=== PATIENT | female | born 1985 | race Caucasian/White ===

== ENCOUNTER → 2020-03-10 | Outpatient (CLI) | payer OTHER ==
[~2020-03-10] MED LIST: DIBU10OI TOP; DOCU100C16 PO; IBUP80TA PO; PRENTAB9 PO
--- NOTE | 2020-03-16 07:52 | REP ---
NONVASCULAR EXTREMITY ULTRASOUND CLINICAL: Left axillary lump. TECHNIQUE: Real time, ayala scale and color evaluation using linear high frequency transducer. FINDINGS: Ultrasound examination of the left axillary region demonstrates 3 normal- appearing lymph nodes measuring 24 x 10 x 17 mm, 33 x 8 x 14 mm and 18 x 8 x 9 mm, which may be slightly enlarged. Evaluation of the right axillary region demonstrates a single normal lymph node measuring 12 x 5 x 6 mm. IMPRESSION: Palpable mass corresponds to left axillary lymph nodes which may be mildly prominent in size. MTDD
== END ==
LOC: M WHC 07:05
PROVIDERS: ATTEND Registered Nurse
DX: R59.0 Localized enlarged lymph nodes (principal)

== ENCOUNTER 2020-04-19 19:07 | Outpatient (CLI) | payer OTHER ==
[~2020-04-19] VITALS: Ht 172.7 cm; Wt 99.5 kg
[2020-04-19 19:28] VITALS: BP 135/79
[2020-04-19 19:32] VITALS: BP 128/75
[2020-04-19 19:36] VITALS: BP 131/75
[2020-04-19] MEDS ORDERED: PRENTAB9 PO (19:42)
[2020-04-19 20:24] VITALS: BP 147/82
--- NOTE | 2020-04-19 20:50 | IPNPDOC ---
Text Note Date of Service The patient was seen on 04/19/20. NOTE 04/19/2020 2030 HRS PATIENT SEEN IN TRIAGE FELT SROM AND PINK SHOW AFTER SHOWER. ALSO WITH BM MORE MUCOUS PINK DISCHARGE NO CTX . PATIENT G2 PO EDC 05/03/20 AT 38 WEEKS HISTORY UTI EVELYNE NEGATIVE . EXAMINATION NO DISTRESS NO CONTRACTIONS CATEGORY 1 STRIP MODERATE VARIABILITY NO DECELERATIONS ACCELERATIONS NOTED . STERILE SPECULUM EXAMINATION POSTERIOR CUL DE SAC MODERATE MUCUS WITH PINK SHOW. NITRAZINE NOT DIAGNOSTIC DUE TO SHOW SLIDE NO FERNING SOME RBC'S NO YEAST NO BV . ULTRASOUND VERTEX MODERATE FLUID 3 QUADRANTS 11.86 CM SMALLEST POCKET 2.47 LIMB MOTION OBSERVED SPONTANEOUS RESPIRATIONS NOTED . PRECAUTIONS GIVEN KEEP APPOINTMENT FT DRUM OB RTC PRN DISCHARGED UNDELIVERED. DIGITAL EXAMINATION VERTEX BALLOTABLE BULGING MEMBRANES SOFT 2 CM POSTERIOR . DISCHARGED UNDELIVERED VS,Fishbone, I+O VS, Fishbone, I+O Vital Signs Date Time Temp Pulse Resp B/P (MAP) Pulse Ox O2 Delivery O2 Flow Rate FiO2 04/19/20 20:29 98.7 18 04/19/20 20:24 108 147/82 (103) 04/19/20 19:36 98 Torin Sun MD Apr 19, 2020 20:49
== END 2020-04-19 20:39 | disposition home or self-care (01) ==
LOC: M LDO 19:07
PROVIDERS: ATTEND Obstetrics & Gynecology
DX: O26.853 Spotting complicating pregnancy, third trimester (principal); Z3A.38 38 weeks gestation of pregnancy
CPT/HCPCS: 59025; 76815; G0378; G0463

== ENCOUNTER 2020-04-20 00:34 | Outpatient (CLI) | payer OTHER ==
[~2020-04-20] VITALS: Ht 172.7 cm; Wt 98.4 kg
[2020-04-20] VITALS (9 sets, daily range): BP systolic 129–143; BP diastolic 64–92
[~2020-04-20 00:34] MED LIST changes: -DIBU10OI TOP; -DOCU100C16 PO; -IBUP80TA PO
--- NOTE | 2020-04-20 01:15 | IPNPDOC ---
Text Note Date of Service The patient was seen on 04/20/20. NOTE 04/20/2020 0110 am patient returns with history contractions started 1000 PM moderate no vaginal bleeding no discharge . patient distressed . PELVIC EXAMINATION CERVIX NO CHANGE 2 CM POSTERIOR SOFT -3 STATION PLAN REEVALUATE 1-2 HOURS KEEP HYDRATED EXPRESSED UNDERSTANDING . VS,Fishbone, I+O VS, Fishbone, I+O Vital Signs Date Time Temp Pulse Resp B/P (MAP) Pulse Ox O2 Delivery O2 Flow Rate FiO2 04/20/20 00:51 97.8 118 138/83 (101) Torin Sun MD Apr 20, 2020 01:15
[2020-04-20] MEDS ORDERED: BUTORPHANOL 2 MG/ML INJ (J0595) IV ONE (05:15)
[2020-04-20] MEDS ORDERED: LR 1,000 ML IV ONE (05:15)
[2020-04-20] MEDS ORDERED: PROMETHAZINE INJ 25 MG/ML VIAL (J2550) IV ONE (05:15)
--- NOTE | 2020-04-20 05:25 | IPNPDOC ---
Text Note Date of Service The patient was seen on 04/20/20. NOTE 0500 am 04/20/20 assessment 2 hours after admission, still 2 cm posterior catagory 1 strip ineffective contractions . PLAN OF CARE IV HYDRATE AND SLEEP MEDICATION . PATIENT WILL EITHER LABOR OR CONTRACTIONS WILL FALLL OFF PATIENT EXPRESSED UNDERSTANDING SAFE TO PROCEED. VS,Fishbone, I+O VS, Fishbone, I+O Vital Signs Date Time Temp Pulse Resp B/P (MAP) Pulse Ox O2 Delivery O2 Flow Rate FiO2 04/20/20 00:51 97.8 118 138/83 (101) Torin Sun MD Apr 20, 2020 05:19
[2020-04-20] MEDS ORDERED: LR 1,000 ML IV SCH (06:45)
== END 2020-04-20 11:15 | disposition home or self-care (01) ==
LOC: M LDO 00:34
PROVIDERS: ATTEND Obstetrics & Gynecology
DX: O47.9 False labor, unspecified (principal); Z88.0 Allergy status to penicillin; Z88.1 Allergy status to other antibiotic agents; Z88.2 Allergy status to sulfonamides; Z88.8 Allergy status to other drugs, medicaments and biological substances
CPT/HCPCS: 59025; 96361; 96374; 96375; G0378; G0463; J0595

== ENCOUNTER 2020-04-21 21:51 | Inpatient (IN) | payer OTHER ==
[~2020-04-21] VITALS: Ht 172.7 cm; Wt 100.2 kg
[2020-04-21 23:09] VITALS: BP 141/81
[2020-04-21 23:12] LABS: HEMATOCRIT 33.8 % (36.0-47.0); HEMOGLOBIN 10.3 g/dl (12.0-15.5); MEAN CORPUSCULAR HEMOGLOBIN 24.7 pg (27.0-33.0); MEAN CORPUSCULAR HGB CONC 30.5 g/dl (32.0-36.5); MEAN CORPUSCULAR VOLUME 81.1 fl (80.0-96.0); PLATELET COUNT, AUTOMATED 284 10^3/uL (150-450); RED BLOOD COUNT 4.17 10^6/uL (4.00-5.40); WHITE BLOOD COUNT 15.2 10^3/uL (4.0-10.0)
[2020-04-21] MEDS ORDERED: LACTATED RINGER'S 1000 ML IV ONE (23:15)
[2020-04-21 23:20] VITALS: BP 139/83
[2020-04-22] VITALS (39 sets, daily range): BP systolic 113–188; BP diastolic 53–99
[2020-04-22] MEDS: LR 1,000 ML IV SCH ×2 (00:11→05:20)
--- NOTE | 2020-04-22 00:28 | HPEPDOC ---
Obstetrical History & Physical General Date of Admission Apr 21, 2020 at 22:16 Primary Care Physician: Torin Sun MD History of Present Illness 04/21/2020 1100 35 YO G2 PO MULTIPLE ADMISSIONS RE CONTRACTIONS. NOW INCREASED INTENSITY OF CONTRACTIONS GBS NEGATIVE RISK FACTOR AMA . NO LOSS OF FLUID NO V AGINAL BLEEDING. Chief Complaint: Contractions, term Age: 35 : 2 Term: 0 Abortions: 1 Care Care: Good Care Dating Final EDC: May 03, 2020 Final EDC by: 1st trimester (US) LMP: Jul 28, 2019 Weeks + Days: 9 Estimated Date of Confinement: May 03, 2020 EGA at Admission: 39.3 Past Medical History Past Obstetrical History : Past Obstetrical History: Multigravida TOBACCO STEMMER History: No pertinent history Past Medical History Surgical History: Denies/None Family History Significant Family History: No pertinent family hx Social History Marital Status: Family situation: Spouse/partner home Psychosocial History: No pertinent psych hx * Smoker: non-smoker Alcohol: Denies Drugs: denies Abuse Violence Screening Have you been hit/kicked/slapp: No Have you been sexually assault: No Imunizations Tdap status: current Allergies Coded Allergies: Penicillins (Verified Allergy, Intermediate, HIVES, 04/19/20) Sulfa (Sulfonamide Antibiotics) (Verified Allergy, Intermediate, HIVES, 04/19/20) Tetracyclines (Verified Allergy, Intermediate, HIVES, 04/19/20) cyclosporine (Verified Allergy, Intermediate, HIVES, 04/19/20) Medications Scheduled No.137/Iron/Folic Acd ( Vitamin Tablet) 1 Each Tablet, 1 TAB PO DAILY Physical Examination Physical Examination GENERAL: Alert and oriented times three. BREAST: . ABDOMEN: Gravid and non-tender to touch. FETUS: Is vertex (VTX) by sterile vaginal examination (SVE), fetus is vertex (VTX) by Emile. HEART RATE: Regular rate and rhythm. LUNGS: Clear to auscultation NO WHEEZES NO RHONCHI EXTREMITIES: No edema. Other physical findings PELVIC EXAM 4 CM ANTERIOR SOFT 70% EFFACED -3 STATION SPONTANEOUS RUPTURE OF MEMBRANES CLEAR FLUID Vital Signs/I&O Vital Signs Date Time Temp Pulse Resp B/P (MAP) Pulse Ox O2 Delivery O2 Flow Rate FiO2 04/21/20 23:09 98.6 96 20 141/81 (101) Laboratory Data [facility] Laboratory Tests 2 04/21/20 22:27: Serology Scanned Report Hepatitis B Testing 04/21/20 22:41: Nucleated Red Blood Cells % (auto) 0.0 CBC/BMP Laboratory Tests 04/21/20 22:41 Urine Culture: No Growth Pertinent Laboratoy Data Blood Type: O+ RBC Antibody Screen: Negative HIV: Negative Hepatitis B: Negative Rapid Plasma Reagin: Nonreactive Rubella: Immune Varicella: Immune Chlamydia/Gonorrhea: Negative Group B Streptococcus: Negative Cystic Fibrosis: Negative Anatomy Ultrasound Placenta Location: Anterior Normal Anatomy: Yes Placenta Previa: No Steroid Therapy Steroid Therapy: No Vaginal Examination Dilation: 4 cm Effacement: 80% Station: -3 Cervical Consistency: Soft Cervical Position: Anterior Presentation: Cephalic presentation Assessment Variability: Moderate Accelerations: Positive Decelerations: None Tocometer Contractions: Yes Frequency: regular, every 1-5 min. Duration: less than 60 seconds Strength: palpated as mild Assessment/Plan Assessment 35 Y.O-year-old (G 2para (P0 A 1 at 39.4 by 9.0 -week ultrasound. Presents to Labor and Delivery . Plan Admit and orient. Manager Military and consent. Diet:REGULAR Group B Streptococcus (GBS) [negative]. Labs and intravenous (IV) per unit protocol. Counseled on Pitocin AUGMENTATION Lactated Ringers (LR): Bolus 1000 mL, then at 125 mL/hr. Anticipate [normal spontaneous delivery ()]. C-S as appropriate. Labor and Delivery Counseling 04/21/20 REVIEWED PLAN OF CARE AND CONSENT FOR DELIVERY PLAN IV HYDRATE EPIDURAL NEEDED . POSSIBLE AUGMENTATION OF LABOR . POSSIBLE NEED FOR PITOCIN , EPISIOTOMY. FORCEPS OR VACUUM OR EMERGENCY . RISKS FOR ABOVE ARE TACHYSYSTOLE,NRFHT UTERINE RUPTURE NEED FOR EMERGENCY CS ADMISSION TO NICU RE SCRATCHES , HEMATOMA OR INTRACRANIAL BLEED. NEED FOR RE PAIR CERVIX PERINEUM VAGINA BLADDER REMOTE BLOOD TRANSFUSION, REMOTE HYSTERECTOMY FOR LIFE THREATENING BLEEDING EXPRESSED UNDERSTANDING CATAGORY 1 STRIP SAFE TO PROCEED' Torin Sun MD Apr 22, 2020 00:16
[2020-04-22] MEDS ORDERED: FENTANYL 2MCG/ML ROPIVACAINE 0.2% IN 0.9% NACL 100ML IVBAG As Ordered ONE (00:40)
[2020-04-22] MEDS ORDERED: OXYTOCIN INJ 10 UNITS/ML VIAL (J2590) As Ordered ONE (00:40)
[2020-04-22] MEDS ORDERED: OXYTOCIN 30 UNITS IN 0.9% NaCl 500ML IV BAG (J2590) As Ordered ONE (00:40)
[2020-04-22] MEDS ORDERED: ONDANSETRON 4MG/2ML VIAL IV PRN (01:30)
[2020-04-22] MEDS ORDERED: LACTATED RINGER'S 1000 ML IV PRN (01:30)
[2020-04-22] MEDS ORDERED: EPIDURAL/PCA KEYS XX PRN (01:30)
[2020-04-22] MEDS ORDERED: NALOXONE INJ 0.4MG/1ML VIAL (J2310 PER 1MG) IV PRN (01:30)
[2020-04-22] MEDS ORDERED: REFRIGERATOR IV KEYS XX PRN (01:30)
[2020-04-22] MEDS ORDERED: diphenhydrAMINE 50MG/ML VIAL (J1200) IV PRN (01:30)
[2020-04-22] MEDS ORDERED: ePHEDrine SULFATE 25 MG/5 ML(5MG/ML) SYRINGE IV PRN (01:30)
[2020-04-22] MEDS ORDERED: EPIDURAL COMMENT XX SCH (01:30)
[2020-04-22] MEDS ORDERED: FENTANYL/ROPIVACAINE/NACL BAG 100 ML EPIDURAL SCH (01:30)
[2020-04-22] MEDS ORDERED: OXYTOCIN DRIP 30 UNITS in IV 1 EA IV SCH ×3 (04:30→10:00)
[2020-04-22] MEDS ORDERED: CALCIUM CARBONATE 500 MG CHEW U/D PO ONE (06:00)
[2020-04-22] MEDS ORDERED: DOCUSATE SODIUM 100 MG CAP PO PRN (09:15)
[2020-04-22] MEDS ORDERED: RHOGAM 300 MCG (1500 IU) INJ (J2790) IM SCH (09:15)
[2020-04-22] MEDS ORDERED: DIBUCAINE 1% OINTMENT 30GM TOP PRN (09:15)
--- NOTE | 2020-04-22 09:40 | DNPDOC ---
[facility] Delivery Note Delivery Note DATE OF DELIVERY: 22APR2020 PREDELIVERY DIAGNOSIS: 38-4/7 weeks' gestation and labor. POST DELIVERY DIAGNOSIS: Delivered. PROCEDURE: Spontaneous vaginal delivery DISPLAYER MERCHANDISE: Demetrius Merrill CNM ANESTHESIA: epidural. ESTIMATED BLOOD LOSS: 450 mL. FINDINGS: 8 pound 2 ounce male , Score 7/9, nuchal cord times x1 tight. DELIVERY SUMMARY: Patient is a 35-year-old 2 now para 1-0-1-1 who was admitted to labor and delivery for active labor at term on 21Apr2020. Alecia made gradual decent to in OA with restitution to MIRA. A tight nuchal cord and compound left hand were noted after delivery of the head. The posterior arm delivered spontaneously followed easily by the anterior shoulder. The was somersaulted towards the maternal right thigh and the cord manually reduced. The male infant was placed immediately skin to skin on the maternal abdomen where he was dried and stimulated to cry. Pitocin infusion was initiated. The cord was clamped x 2 after pulsation ceased and cut by the FOB. The placenta delivered spontaneously in [place] presentation with a moderate amount of bleeding. The cervix was swept for several clots and the fundus massaged until firm with bleeding appropriately slowed. Examination revealed and intact perineum and a shallow posterior vaginal wall laceration. The laceration was repaired in the usual fashion with 3-[address] Mother and baby entered the recovery phase in stable condition with skin to skin uninterrupted and initiated. DEMETRIUS MERRILL CNM Apr 22, 2020 09:40
[2020-04-22] MEDS ORDERED: PROMETHAZINE INJ 25 MG/ML VIAL (J2550) IV ONE (10:00)
[2020-04-22] MEDS ORDERED: BUTORPHANOL 2 MG/ML INJ (J0595) IV ONE (10:00)
[2020-04-22] MEDS ORDERED: CALCIUM CARBONATE 500 MG CHEW U/D PO PRN (10:00)
[2020-04-22] MEDS: ACETAMINOPHEN TAB 650MG DOSE (2X325MG) PO PRN ×2 (10:51→18:03)
[2020-04-22] MEDS: IBUPROFEN 800 MG TAB PO PRN ×2 (11:20→19:24)
[2020-04-23] MEDS: IBUPROFEN 800 MG TAB PO PRN (03:35)
[2020-04-23] MEDS: ACETAMINOPHEN TAB 650MG DOSE (2X325MG) PO PRN (03:35)
[2020-04-23 06:00] VITALS: BP 130/62
[2020-04-23] MEDS: PRENATAL VITAMINS CHEWABLE TABLET PO SCH (09:20)
[2020-04-23 18:00] VITALS: BP 133/78
[2020-04-24 06:00] VITALS: BP 125/66
[2020-04-24] MEDS ORDERED: DIBU10OI TOP (07:49)
[2020-04-24] MEDS ORDERED: IBUP80TA PO (07:49)
[2020-04-24] MEDS ORDERED: DOCU100C16 PO (07:49)
[2020-04-24] MEDS: PRENATAL VITAMINS CHEWABLE TABLET PO SCH (08:39)
[2020-04-24] MEDS ORDERED: INFLUENZA QUADRIVALENT PF VACCINE 0.5ML SYRINGE IM ONE (09:00)
--- NOTE | 2020-04-26 07:08 | DS ---
DATE OF ADMISSION: 04/21/2020 DATE OF DISCHARGE: 04/24/2020 BRIEF HISTORY: This lady is a 35-year-old 2, para 1 who came in in spontaneous labor, had a spontaneous vaginal delivery, male infant, 8 pounds, 2 ounces, coiled around the neck times one, loose. The patient had a small posterior vaginal wall laceration. She did have an epidural in place. The rest of the examination is unremarkable. Normocephalic, atraumatic. Neck: Full range of motions. Pupils equal and reactive to light. Distal pulses are symmetric. No evidence of DVT, PE, or superficial phlebitis. Chest is clear bilateral bases. No wheezes or rhonchi. No CVA tenderness. Abdomen is soft. Four quadrant bowel sounds are noted. Perineum is intact. Uterus is 2 below. No rashes, lesions or pruritus. No arthralgias or myalgias. No complaints of joint pain. No complaint of cough, wheeze, shortness of breath, or dyspnea on exertion. No nausea or vomiting, diarrhea, or constipation, no urgency or frequency. SUMMARY: We have a term gestation, delivery of live male . Plans are for discharge today. 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 Six week [place] [facility] appointment. All questions were answered. Twenty minute discussion. On discharge her blood pressure is 125/66, respirations are 20, pulse is 80 and temperature is 97.4. Her admitting hemoglobin was 10.3, hematocrit 33.8, and platelets were 284. Discharged improved. [facility]ENTER[facility]rem[facility]
== END 2020-04-24 12:50 | disposition home or self-care (01) | DRG 806 ==
LOC: M LDO 21:51 → M LDI 22:16 → M OBS 04-22 14:40
PROVIDERS: ADMIT Obstetrics & Gynecology; ATTEND Obstetrics & Gynecology
PROC: 10E0XZZ Delivery of Products of Conception, External Approach (ICD-10-PCS; principal; 2020-04-22)
PROC: 0HQ9XZZ Repair Perineum Skin, External Approach (ICD-10-PCS; 2020-04-22)
DX: O69.1XX0 Labor and delivery complicated by cord around neck, with compression, not applicable or unspecified (principal); Z37.0 Single live birth; O44.03 Complete placenta previa NOS or without hemorrhage, third trimester; Z88.0 Allergy status to penicillin; Z88.2 Allergy status to sulfonamides; Z88.8 Allergy status to other drugs, medicaments and biological substances; Z3A.38 38 weeks gestation of pregnancy; O32.6XX0 Maternal care for compound presentation, not applicable or unspecified; O09.523 Supervision of elderly multigravida, third trimester; O70.0 First degree perineal laceration during delivery

== ENCOUNTER 2021-04-24 08:05 | Emergency (ER) | payer OTHER ==
[~2021-04-24] VITALS: Ht 172.7 cm; Wt 100.0 kg
[~2021-04-24 08:05] MED LIST changes: +DIBU28OI2 TOP; +DOCU100C16 PO; +IBUP80TA PO
--- OUTSIDE RECORDS SUMMARY | 2021-04-24 08:12 | CCD ---
Author Author [facility] Organization [facility] Address Unknown Phone Unavailable Care Team Providers Care Digital Associate Media Director Name Role Phone Maring, Bakari PA Unavailable Unavailable Maring, Bakari PA Unavailable Unavailable Maring, Bkaari PA Unavailable Unavailable Maring, Bakari PA Unavailable Unavailable Maring, Bakari PA Unavailable Unavailable Maring, Bakari PA Unavailable Unavailable Maring, Bakari PA Unavailable Unavailable Maring, Bakari PA Unavailable Unavailable Maring, Bakari PA Unavailable Unavailable Maring, Bakari PA Unavailable Unavailable Maring, Bakari PA Unavailable Unavailable Maring, Bakari PA Unavailable Unavailable Maring, Bakari PA Unavailable Unavailable Maring, Bakari PA Unavailable Unavailable Maring, Bakari PA Unavailable Unavailable Maring, Bakari PA Unavailable Unavailable Re-disclosure Warning The records that you are about to access may contain information from federally-assisted alcohol or drug abuse programs. If such information is present, then the following federally mandated warning applies: This information has been disclosed to you from records protected by federal confidentiality rules (42 CFR part 2). The federal rules prohibit you from making any further disclosure of this information unless further disclosure is expressly permitted by the written consent of the person to whom it pertains or as otherwise permitted by 42 CFR part 2. A general authorization for the release of medical or other information is NOT sufficient for this purpose. The Federal rules restrict any use of the information to criminally investigate or prosecute any alcohol or drug abuse patient.The records that you are about to access may contain highly sensitive health information, the redisclosure of which is protected by Article 27-F of the [facility] Public Health law. If you continue you may have access to information: Regarding HIV / AIDS; Provided by facilities licensed or operated by the [facility] Office of Mental Health; or Provided by the [facility] Office for People With Developmental Disabilities. If such information is present, then the following [facility] mandated warning applies: This information has been disclosed to you from confidential records which are protected by state law. State law prohibits you from making any further disclosure of this information without the specific written consent of the person to whom it pertains, or as otherwise permitted by law. Any unauthorized further disclosure in violation of state law may result in a fine or longterm sentence or both. A general authorization for the release of medical or other information is NOT sufficient authorization for further disc losure. Encounters Encounter Providers Location Date Indications Data Source(s ) Outpatient Attender: Bakari Steven JEB 04/06/20 10:19:23 AM EDT - 04/06/2021 11:21:38 AM EDT [facility] ([facility] ) Outpatient Attender: Bakari Whitfieldjuju RUSS 04/04/20 03:02:33 PM EDT - 04/04/2021 04:08:32 PM EDT [facility] ([facility] ) Outpatient 08/17/2020 01:38:03 PM EST - 021 01:48:37 PM EST [facility] ([facility]) Outpatient Attender: Bakari Whitfieldjuju RUSS 07/29/19 03:32:39 PM EST - 07/29/2020 03:51:28 PM EST [facility] ([facility] ) Medications No Information Insurance Providers Payer name Policy type / Coverage type Policy ID Covered libertarian ID Covered libertarian's relationship to carter Policy Carter Plan Information / [id number] Self 01 [id number] RPR- Needs Payer Match [id number] Self [id number] [employer] - O/P [id number] 01 [id number] [facility] [employer] - I/P [id number] 01 [id number] [facility] [employer] - PHYSICIAN [id number] 01 [id number] O UNAVAILABLE UNAVAILA BLE [employer] [facility] [id number] [facility] [id number] Problems, Conditions, and Diagnoses No Information Surgeries/Procedures No Information Results ID Date Data Source [id number] 04/06/2021 10:45:00 AM EDT [facility] Name Value Range Interpretation Code Description Data Rossy rce(s) Supporting Document(s) SARS-CoV-2 RNA Resp Ql SADE+probe NOT DETECTED [facility] This lab was ordered by ZEYNEP driscoll and reported by ZEYNEP Dillon. Procedure Social History No Information
[2021-04-24] MEDS ORDERED: LIDOCAINE 1% MDV 20ML VIAL SC ONE (08:40)
[2021-04-24] MEDS ORDERED: NEOSPORIN OINT 0.9 GM PKT TOP ONE (09:40)
--- OUTSIDE RECORDS SUMMARY | 2021-04-24 09:44 | CCD ---
Author Author [facility] Organization [facility] Address Unknown Phone Unavailable Care Team Providers Care Election Clerk Name Role Phone Maring, Bakari PA Unavailable [...] is protected by Article 27-F of the [facility] Public Health law. If you continue you may have access to information: Regarding HIV / AIDS; Provided by facilities licensed or operated by the [facility] Office of Mental Health; or Provided by the [facility] Office for People With Developmental Disabilities. If such information is present, then the following [facility] mandated warning applies: This information has been [...] law may result in a fine or fdc sentence or both. A general authorization for [...] type / Coverage type Policy ID Covered constitution party ID Covered constitution party's relationship to carter Policy Carter Plan Information / [id number] Self 01 [id number] RPR- Needs Payer Match [id number] Self [id number] [employer] - O/P [id number] 01 [id number] [facility] [employer] - I/P [id number] 01 [id number] [facility] [employer] - PHYSICIAN [id number] 01 [id number] O UNAVAILABLE UNAVAILA BLE [employer] [facility] [id number] [facility] [id number] Problems, Conditions, and Diagnoses No Information Surgeries/Procedures No Information Results ID Date Data Source [id number] 04/06/2021 10:45:00 AM EDT [facility] Name Value Range Interpretation Code Description Data Rossy rce(s) Supporting Document(s) SARS-CoV-2 RNA Resp Ql SADE+probe NOT DETECTED [facility] This lab was ordered by ZEYNEP driscoll and reported by ZEYNEP Dillon. Procedure Social History No Information
[2021-04-24 10:24] VITALS: BP 116/65
== END 2021-04-24 10:27 | disposition home or self-care (01) ==
LOC: M ED 08:05
DX: S61.215A Laceration without foreign body of left ring finger without damage to nail, initial encounter (principal); W26.0XXA Contact with knife, initial encounter; Y92.000 Kitchen of unspecified non-institutional (private) residence as the place of occurrence of the external cause; Y93.G1 Activity, food preparation and clean up; Y99.9 Unspecified external cause status; Z88.0 Allergy status to penicillin; Z88.1 Allergy status to other antibiotic agents; Z88.2 Allergy status to sulfonamides

== ENCOUNTER 2021-08-31 19:33 | Inpatient (IN) | payer OTHER ==
[~2021-08-31] VITALS: Ht 172.7 cm; Wt 112.4 kg
[2021-08-31] MEDS ORDERED: PRENTAB9 PO (19:55)
[2021-08-31] MEDS ORDERED: LIDOCAINE 1% MDV 20ML VIAL INFIL PRN (20:10)
[2021-08-31] MEDS ORDERED: OXYTOCIN DRIP 30 UNITS in IV 1 EA IV PRN ×4 (20:10)
[2021-08-31] MEDS ORDERED: TRANEXAMIC ACID INJection 1,000 MG in NS 100 ML IV PRN (20:10)
[2021-08-31] MEDS ORDERED: CARBOPROST TROMETHAMINE 250 MCG/ML AMP IM PRN (20:10)
[2021-08-31] MEDS ORDERED: METHYLERGONOVINE MALEATE 0.2 MG/ML VIAL (J2210) IM PRN (20:10)
[2021-08-31 20:16] VITALS: BP 142/75
[2021-08-31 21:11] LABS: HEMATOCRIT 35.1 % (36.0-47.0); MEAN CORPUSCULAR HEMOGLOBIN 24.6 pg (27.0-33.0); MEAN CORPUSCULAR HGB CONC 31.3 g/dl (32.0-36.5); MEAN CORPUSCULAR VOLUME 78.5 fl (80.0-96.0); PLATELET COUNT, AUTOMATED 262 10^3/uL (150-450); RED BLOOD COUNT 4.47 10^6/uL (4.00-5.40); WHITE BLOOD COUNT 8.7 10^3/uL (4.0-10.0)
[2021-08-31 21:19] VITALS: BP 141/81
[2021-08-31] MEDS: miSOPROStol 50MCG 1/2 TABLET PO SCH (21:20)
[2021-08-31 21:32] LABS: ALT/SGPT 21 U/L (12-78); BILIRUBIN,TOTAL 0.2 MG/DL (0.2-1.0); CREATININE FOR GFR 0.65 MG/DL (0.55-1.30); GLOMERULAR FILTRATION RATE > 60.0 (>60); LDH LACTATE DEHYDROGENASE 177 U/L (84-246)
[2021-08-31 22:20] VITALS: BP 142/75
[2021-08-31 23:21] VITALS: BP 135/78
[2021-08-31] MEDS ORDERED: FAMOTIDINE 20 MG TAB PO ONE (23:35)
[2021-09-01] VITALS (20 sets, daily range): BP systolic 108–178; BP diastolic 54–91
[2021-09-01] MEDS: miSOPROStol 50MCG 1/2 TABLET PO SCH ×2 (01:21→05:25)
[2021-09-01] MEDS: LR 1,000 ML IV SCH ×5 (11:03→22:32)
[2021-09-01] MEDS ORDERED: OXYTOCIN INJ 10 UNITS/ML VIAL (J2590) IV PRN (11:45)
[2021-09-01] MEDS ORDERED: METHYLERGONOVINE MALEATE 0.2 MG/ML VIAL (J2210) IM PRN (11:45)
[2021-09-01] MEDS ORDERED: ACETAMINOPHEN 650 MG SUPP PR SCH (11:45)
[2021-09-01] MEDS ORDERED: BUPIVACAINE HCL 0.25% 10ML VIAL SC SCH (11:45)
[2021-09-01] MEDS ORDERED: LR 1,000 ML IV SCH ×2 (11:45→17:55)
[2021-09-01] MEDS ORDERED: OXYTOCIN DRIP 30 UNITS in IV 1 EA IV PRN ×4 (11:45)
[2021-09-01] MEDS ORDERED: TRANEXAMIC ACID INJection 1,000 MG in NS 100 ML IV PRN (11:45)
[2021-09-01] MEDS ORDERED: diphenhydrAMINE 50MG/ML VIAL (J1200) IV STA (11:49)
[2021-09-01] MEDS ORDERED: AZITHROMYCIN INJ 500 MG, VIAL MATE ADAPTER 1 EACH in NS 250 ML IV ONE (12:00)
[2021-09-01] MEDS ORDERED: LACTATED RINGER'S 1000 ML IV ONE (12:00)
[2021-09-01] MEDS ORDERED: BICITRA 30ML SOLN UDC PO ONE (12:00)
[2021-09-01] MEDS ORDERED: ceFAZolin SOD 2 GM in IV 1 EA IV ONE (13:00)
[2021-09-01 13:15] LABS: HEMATOCRIT 35.4 % (36.0-47.0); HEMOGLOBIN 11.1 g/dl (12.0-15.5); MEAN CORPUSCULAR HEMOGLOBIN 24.4 pg (27.0-33.0); MEAN CORPUSCULAR HGB CONC 31.4 g/dl (32.0-36.5); MEAN CORPUSCULAR VOLUME 77.8 fl (80.0-96.0); PLATELET COUNT, AUTOMATED 247 10^3/uL (150-450); RED BLOOD COUNT 4.55 10^6/uL (4.00-5.40); WHITE BLOOD COUNT 8.5 10^3/uL (4.0-10.0)
[2021-09-01] MEDS ORDERED: ACETAMINOPHEN 650 MG SUPP PR ONE (14:35)
[2021-09-01] MEDS ORDERED: BUPIVACAINE HCL 0.25% 10ML VIAL SC ONE (14:35)
[2021-09-01] MEDS ORDERED: OXYTOCIN 30 UNITS IN 0.9% NaCl 500ML IV BAG (J2590) As Ordered ONE ×2 (15:36→17:11)
[2021-09-01] MEDS ORDERED: ePHEDrine SULFATE 25 MG/5 ML(5MG/ML) SYRINGE As Ordered ONE (15:36)
[2021-09-01] MEDS ORDERED: MORPHINE PRES-FREE INJ 10 MG/10 ML VIAL (J2274) As Ordered ONE (15:36)
[2021-09-01] MEDS ORDERED: PHENYLephrine 500MCG 5ML (100MCG/ML) SYRINGE As Ordered ONE ×2 (15:36→16:09)
[2021-09-01] MEDS ORDERED: NALOXONE INJ 0.4MG/1ML VIAL (J2310 PER 1MG) IV PRN ×2 (15:52)
[2021-09-01] MEDS ORDERED: ONDANSETRON 4MG/2ML VIAL IV PRN ×2 (15:52→17:55)
[2021-09-01] MEDS ORDERED: NALBUPHINE HCL 10 MG/ML AMP (J2300) IV PRN (15:52)
[2021-09-01] MEDS ORDERED: diphenhydrAMINE 50MG/ML VIAL (J1200) IV PRN (15:52)
[2021-09-01] MEDS ORDERED: METOCLOPRAMIDE INJ 10MG/2ML VIAL (J2765 PER 1) IV PRN ×2 (15:52→17:55)
[2021-09-01] MEDS ORDERED: ONDANSETRON 4MG/2ML VIAL As Ordered ONE (16:05)
[2021-09-01] MEDS ORDERED: KETOROLAC 60MG 2ML VIAL As Ordered ONE (16:05)
[2021-09-01 16:38] LABS: CORD GAS ABE A -4.6; CORD GAS ABE V -4.7; CORD GAS HCO3 A 24.9 MEQ/L; CORD GAS HCO3 V 22.6 MEQ/L; CORD GAS O2 SAT A 22.3 %; CORD GAS O2 SAT V 58.1 %; CORD GAS PCO2 A 63.6 mmHg; CORD GAS PCO2 V 50.2 mmHg; CORD GAS PH A 7.21 UNITS; CORD GAS PH V 7.272 UNITS; CORD GAS PO2 A 14.1 mmHg; CORD GAS PO2 V 24.9 mmHg; CORD GAS SBC A 18.8 MEQ/L; CORD GAS SBC V 19.6 MEQ/L; CORD GAS TCO2 A 26.8 MEQ/L; CORD GAS TCO2 V 24.2 MEQ/L
[2021-09-01] MEDS ORDERED: MOM 30ML SUSPENSION UDC PO PRN (17:05)
[2021-09-01] MEDS ORDERED: SIMETHICONE 80MG CHEW TAB PO PRN (17:05)
[2021-09-01] MEDS ORDERED: ACETAMINOPHEN 500 MG TAB PO PRN (17:05)
[2021-09-01] MEDS ORDERED: ACETAMINOPHEN TAB 650MG DOSE (2X325MG) PO PRN (17:05)
[2021-09-01] MEDS ORDERED: OXYTOCIN DRIP 30 UNITS in IV 1 EA IV SCH (17:05)
[2021-09-01] MEDS ORDERED: DOCUSATE SODIUM 100MG CAPSULE PO PRN (17:05)
[2021-09-01] MEDS ORDERED: PERCOCET 5MG/325MG TAB PO PRN ×3 (17:05→17:55)
[2021-09-01] MEDS ORDERED: RHOGAM 300 MCG (1500 IU) INJ (J2790) IM SCH (17:05)
[2021-09-01] MEDS ORDERED: OXYTOCIN INJ 10 UNITS/ML VIAL (J2590) IV ONE (17:05)
[2021-09-01] MEDS ORDERED: ANUSOL HC CREAM 30GM TOP PRN (17:05)
[2021-09-01] MEDS ORDERED: OXYTOCIN DRIP 30 UNITS in IV 1 EA IV ONE (17:05)
[2021-09-01] MEDS ORDERED: MEASLES,MUMPS,RUBELLA VACCINE INJ (MMR-II) (90707) SC SCH (17:05)
[2021-09-01] MEDS ORDERED: METHYLERGONOVINE MALEATE 0.2 MG TAB PO PRN (17:05)
[2021-09-01] MEDS ORDERED: PERCOCET 5MG/325MG TAB As Ordered ONE (17:43)
[2021-09-01] MEDS ORDERED: fentaNYL 100 MCG/2 ML INJECTION IV PRN (17:55)
[2021-09-01] MEDS: KETOROLAC 30 MG/ML 1ML VIAL IV SCH (22:32)
[2021-09-02 02:27] VITALS: BP 131/83
[2021-09-02] MEDS: LR 1,000 ML IV SCH (04:30)
[2021-09-02] MEDS: KETOROLAC 30 MG/ML 1ML VIAL IV SCH ×2 (05:00→11:17)
[2021-09-02 06:10] VITALS: BP 125/70
[2021-09-02 06:54] LABS: HEMATOCRIT 28.5 % (36.0-47.0); HEMOGLOBIN 8.8 g/dl (12.0-15.5); MEAN CORPUSCULAR HEMOGLOBIN 24.7 pg (27.0-33.0); MEAN CORPUSCULAR HGB CONC 30.9 g/dl (32.0-36.5); MEAN CORPUSCULAR VOLUME 80.1 fl (80.0-96.0); PLATELET COUNT, AUTOMATED 186 10^3/uL (150-450); RED BLOOD COUNT 3.56 10^6/uL (4.00-5.40); WHITE BLOOD COUNT 8.6 10^3/uL (4.0-10.0)
[2021-09-02] MEDS: PRENATAL VITAMINS CHEWABLE TABLET PO SCH (09:00)
[2021-09-02 10:00] VITALS: BP 142/75
[2021-09-02 14:00] VITALS: BP 131/69
[2021-09-02 18:00] VITALS: BP 122/77
[2021-09-02] MEDS: IBUPROFEN 600MG TAB PO PRN (21:25)
[2021-09-02 22:00] VITALS: BP 133/72
[2021-09-03 02:00] VITALS: BP 140/66
[2021-09-03 05:50] VITALS: BP 135/70
[2021-09-03] MEDS: PRENATAL VITAMINS CHEWABLE TABLET PO SCH (10:34)
[2021-09-03] MEDS: IBUPROFEN 600MG TAB PO PRN (10:35)
== END 2021-09-03 12:45 | disposition home or self-care (01) | DRG 773 ==
LOC: M LDI 19:33 → M OBS 09-01 18:38
PROVIDERS: ADMIT Obstetrics & Gynecology; ATTEND Obstetrics & Gynecology
PROC: 3E033VJ Introduction of Other Hormone into Peripheral Vein, Percutaneous Approach (ICD-10-PCS; 2021-08-31)
PROC: 3E0P7VZ Introduction of Hormone into Female Reproductive, Via Natural or Artificial Opening (ICD-10-PCS; 2021-08-31)
PROC: 10D00Z1 Extraction of Products of Conception, Low, Open Approach (ICD-10-PCS; principal; 2021-09-01 15:23)
DX: O14.04 Mild to moderate pre-eclampsia, complicating childbirth (principal); Z37.0 Single live birth; Z3A.37 37 weeks gestation of pregnancy; E66.9 Obesity, unspecified; O99.214 Obesity complicating childbirth; Z87.891 Personal history of nicotine dependence; Z88.0 Allergy status to penicillin; Z88.2 Allergy status to sulfonamides; Z88.8 Allergy status to other drugs, medicaments and biological substances; O09.523 Supervision of elderly multigravida, third trimester; O40.3XX0 Polyhydramnios, third trimester, not applicable or unspecified; O32.2XX0 Maternal care for transverse and oblique lie, not applicable or unspecified

== ENCOUNTER 2021-09-05 13:00 | Emergency (ER) | payer OTHER ==
[~2021-09-05] VITALS: Ht 172.7 cm; Wt 109.9 kg
[2021-09-05 14:44] LABS: BASO % 0.4 % (0.0-1.0); EOS # 0.2 10^3/uL (0.0-0.5); EOS % 3.1 % (0.0-3.0); HEMATOCRIT 28.2 % (36.0-47.0); HEMOGLOBIN 8.8 g/dl (12.0-15.5); LYMPH # 1.1 10^3/uL (1.5-5.0); LYMPH % 14.7 % (24.0-44.0); MEAN CORPUSCULAR HEMOGLOBIN 24.6 pg (27.0-33.0); MEAN CORPUSCULAR HGB CONC 31.2 g/dl (32.0-36.5); MONO # 0.5 10^3/uL (0.0-0.8); MONO % 5.8 % (2.0-8.0); NEUTROPHILS # 5.7 10^3/uL (1.5-8.5); NEUTROPHILS % 73.9 % (36.0-66.0); PLATELET COUNT, AUTOMATED 250 10^3/uL (150-450); RED BLOOD COUNT 3.57 10^6/uL (4.00-5.40); WHITE BLOOD COUNT 7.7 10^3/uL (4.0-10.0)
[2021-09-05 15:13] LABS: HCG, SERUM QUALITATIVE POSITIVE (NEGATIVE)
[2021-09-05 15:18] LABS: ALBUMIN 2.4 GM/DL (3.2-5.2); ALT/SGPT 48 U/L (12-78); BILIRUBIN,DIRECT < 0.1 MG/DL (0.0-0.2); BILIRUBIN,TOTAL 0.3 MG/DL (0.2-1.0); BLOOD UREA NITROGEN 7 MG/DL (7-18); CALCIUM LEVEL 8.4 MG/DL (8.5-10.1); CARBON DIOXIDE LEVEL 28 MEQ/L (21-32); CHLORIDE LEVEL 107 MEQ/L (98-107); CREATININE FOR GFR 0.58 MG/DL (0.55-1.30); GLOMERULAR FILTRATION RATE > 60.0 (>60); GLUCOSE, FASTING 96 MG/DL (70-100); POTASSIUM SERUM 3.9 MEQ/L (3.5-5.1); SODIUM LEVEL 141 MEQ/L (136-145); TOTAL PROTEIN 6.1 GM/DL (6.4-8.2)
[2021-09-05] MEDS ORDERED: methylPREDNISolone 125MG 2ML VIAL IV ONE (15:20)
[2021-09-05] MEDS: COMBIVENT RESPIMAT 100-20MCG INHALER 4GM INH SCH ×3 (15:20→16:58)
[2021-09-05] MEDS ORDERED: ISOVUE-370 76% 100ML VIAL As Ordered ONE (15:28)
[2021-09-05] MEDS ORDERED: PROAAER10 INH (17:40)
[2021-09-05] MEDS ORDERED: PRED20TA PO (17:40)
[2021-09-05 18:00] VITALS: BP 162/98
[2021-09-05 18:51] LABS: INR 0.9; PROTHROMBIN TIME 12.5 SECONDS (12.7-14.5)
== END 2021-09-05 18:33 | disposition home or self-care (01) ==
LOC: M ED 13:00
DX: O90.81 Anemia of the puerperium (principal); J45.909 Unspecified asthma, uncomplicated; Z88.0 Allergy status to penicillin; Z88.1 Allergy status to other antibiotic agents; Z88.2 Allergy status to sulfonamides
CPT/HCPCS: 71045; 71275; 80048; 80076; 83605; 84703; 85025; 85610; 87040; 87798; 93005; 93041; 94640; 94760; 96374; 99285; J2930; Q9967